=== PATIENT | male | born 1980 | race Caucasian/White ===

== ENCOUNTER 2021-10-03 13:04 | Outpatient (CLI) | payer OTHER, SELFPAY ==
--- NOTE | ~2021-10-03 | MR_ITS ---
EXAMINATION: MR knee LT wo con DATE: 10/03/2021 13:52 INDICATION: Left knee pain. Left knee injury. TECHNIQUE: Magnetic resonance imaging (MRI) of the left knee was performed without intravenous contra st. Sequences included axial PD-weighted FS FSE, coronal PD-weighted FSE and PD-weighted FS FSE, sagi ttal PD-weighted FSE, and sagittal T2-weighted FS FSE. COMPARISON: None. FINDINGS: Medial compartment: Medial meniscus is normal. There is cartilage surface irregularity of femoral condyle. Tibial cartila ge is normal. Lateral compartment: Lateral meniscus is normal. There is cartilage surface irregularity of tibial condyle and femoral con dyle. Patellofemoral compartment: There is shallow partial-thickness cartilage loss of patellar lateral facet. Trochlear cartilage is n ormal. Ligaments and tendons: Anterior and posterior cruciate ligaments are normal. Medial collateral ligament is normal. There are changes of prior sprain of fibular collateral ligament characterized by increased signal intensity p roximally. There is mild patellar tendinopathy. Fluid: There is a moderate-sized knee joint effusion. There is a moderate-sized Torres's cyst. There is mild superficial infrapatellar bursitis. IMPRESSION: 1. Mild tricompartmental chondrosis. 2. Moderate-sized knee joint effusion. 3. Moderate-sized Torres's cyst. Reviewed, dictated and finalized at location E.
== END 2021-10-03 13:05 | disposition home or self-care (01) ==
DX: M17.12 Unilateral primary osteoarthritis, left knee (principal); M71.22 Synovial cyst of popliteal space [Baker], left knee; M25.462 Effusion, left knee
CPT/HCPCS: 73721

== ENCOUNTER 2023-05-20 08:01 | Emergency (ER) | payer OTHER, SELFPAY ==
--- NOTE | 2023-05-20 08:10 | ED.URI ---
HPI - URI/Sore Throat General Chief Complaint: Upper Respiratory Infection Stated Complaint: painful/scratchy throat Time Seen by Provider: 05/20/23 08:10 Source: patient, RN notes reviewed and old records reviewed Mode of arrival: ambulatory Limitations: no limitations History of Present Illness HPI Narrative: 43-year-old male presents to the [facility] with a painful scratchy throat. Symptoms started Tuesday, got worse yesterday. Has taken DayQuil at night. Denies any fevers. Has coughed up 7 green phlegm yesterday and today. Denies any chest pain, shortness of breath. No abdominal pain. Has taken home COVID test which he reports as negative x3 Related Data Home Medications Medication Instructions Recorded Confirmed amlodipine 10 mg tablet 10 mg PO DAILY 05/20/23 05/20/23 bupropion HCl 150 mg 24 hr tablet, 150 mg PO DAILY 05/20/23 05/20/23 extended release epinephrine 0.3 mg/0.3 mL See Rx Instructions .Route .COMPLEX 05/20/23 05/20/23 injection, auto-injector escitalopram oxalate 10 mg tablet 10 mg PO DAILY 05/20/23 05/20/23 esomeprazole magnesium 40 mg 40 mg PO DAILY 05/20/23 05/20/23 capsule,delayed release metoprolol succinate 25 mg 12.5 mg PO DAILY 05/20/23 05/20/23 tablet,extended release 24 hr Allergies Allergy/AdvReac Type Severity Reaction Status Date / Time hydrocodone Allergy Unknown insomnia Verified 05/20/23 08:11 SHELLFISH Allergy Severe EYE'S Uncoded 05/20/23 08:11 SWELLING AND ITCHING, MILD RASH Review of Systems Review of Systems: All systems reviewed & are unremarkable except as noted in HPI and below Constitutional: Constitutional: Reports no additional constitutional complaints Eyes: Eyes: Reports no additional eye complaints ENT: Reports as per HPI and Reports sore throat Cardiovascular: Cardiovascular: Reports no additional cardiovascular complaints, Denies chest pain and Denies dyspnea Respiratory: Respiratory: Reports no additional respiratory complaints, Denies chest congestion, Denies cough and Denies dyspnea Gastrointestinal: Gastrointestinal: Reports no additional gastrointestinal complaints, Denies abdominal pain, Denies nausea and Denies vomiting Musculoskeletal: Musculoskeletal: Reports no additional musculoskeletal complaints Integumentary/Breasts: Skin/Breast: Reports system reviewed and no additional complaints, except as docu Neurologic: Reports system reviewed and no additional complaints, except as documented Psychiatric: Psychiatric: Reports no additional psychiatric complaints Allergic/Immunologic: Allergic/Immunologic: Reports no additional allergic/immunologic complaints PMFSH Past Medical History Medical History Biliary colic Chronic cholecystitis without calculus Dysfunctional gallbladder Esophageal reflux Unspecified asthma Family History Family History Other Asthma Carcinoma of colon Social History Social History Smoking status: Former smoker Second hand tobacco smoke exposure: Yes Smoking end date: 07/04/14 Alcohol intake: current Comments At the time of my signature, I reviewed and agree with the nursing past medical, surgical, social, and family history. There is no relevant family history pertinent to the patient complaint. Exam Const: General: cooperative, healthy appearing, comfortable, no acute distress, well developed, alert and well nourished Nutritional Appearance: well nourished Orientation/consciousness: patient oriented x3 Limitations: no limitations HENMT: Head: normal to inspection Ears: hearing grossly normal bilaterally, external ears normal, TM's normal bilaterally, EAC's normal, mastoids normal and no periauricular adenopathy Face/Nose/Sinus: Normal external nose present, Normal nares present, Normal nasal mucous membran
[2023-05-20 08:13] VITALS: BP 140/84; PULSE 79; RESP 16; TEMP 37.3; O2SAT 100
== END 2023-05-20 08:38 | disposition home or self-care (01) ==
PROVIDERS: Emergency Provider Nurse Practitioner; PCP Family Medicine
DX: J02.0 Streptococcal pharyngitis (principal); Z87.891 Personal history of nicotine dependence; K21.9 Gastro-esophageal reflux disease without esophagitis; J45.909 Unspecified asthma, uncomplicated
CPT/HCPCS: 87880; 99213; G0463